=== PATIENT | male | born 1955 | race Caucasian/White ===

== ENCOUNTER 2018-11-11 11:27 | Inpatient (IN) | payer OTHER ==
[~2018-11-11] VITALS: Ht 175.3 cm; Wt 68.0 kg
[2018-11-11] MEDS ORDERED: LORazepam 2MG/ML-1ML VIAL ONE (11:33)
[2018-11-11] MEDS ORDERED: methylPREDNISolone SOD SUCC 125 MG/2 ML VL IV ONE (12:00)
[2018-11-11] MEDS ORDERED: ONDANSETRON HCL 4 MG/2 ML VIAL IV ONE (12:00)
[2018-11-11] MEDS ORDERED: LORazepam 2MG/ML-1ML VIAL IV ONE (12:30)
[2018-11-11 13:26] LABS: Hematocrit 49.4 % (41.0-53.0); Hemoglobin 16.9 g/dL (13.5-17.5); Mean Corpuscular Hemoglobin 31.5 pg (28.0-32.0); Mean Corpuscular Hgb Conc. 34.1 g/dL (32.0-36.0); Mean Corpuscular Volume 92.2 fL (80.0-100.0); Platelet Count (auto) 223 10^3/uL (140-450); Red Blood Cells 5.36 10^6/uL (4.5-5.90); Red Cell Distribution Width 13.6 % (11.8-14.3); White Blood Cell 14.9 10^3/uL (4.4-10.8)
[2018-11-11 13:37] LABS: Basophils % (manual) 0 (0.0-2.0); Blast Cells 0; Metamyelocytes % 0; Myelocytes % 0; Promyelocytes % 0; Reactive Lymphocytes 0
[2018-11-11 13:54] LABS: Band Neutrophils % (manual) 1; Eosinophils % (manual) 1 (0-7); Lymphocytes % (manual) 15 (10.0-50.0); Monocytes % (manual) 1 (0-12)
[2018-11-11] MEDS ORDERED: EPINEPHrine HCL 0.5 ML NEB NEB ONE (14:15)
[2018-11-11 15:38] LABS: Albumin 3.5 g/dL (3.4-5.0); Potassium 4.3 mmol/L (3.5-5.1)
[2018-11-11 15:41] LABS: BUN/Creatinine Ratio 13.8; Bilirubin, Total 0.7 mg/dL (0.2-1.0); Total Protein 6.7 g/dL (6.4-8.2)
[2018-11-11] MEDS ORDERED: ENOXAPARIN SOD 60 MG/0.6 ML SYRINGE SC ONE (16:00)
[2018-11-11] MEDS ORDERED: ACETAMINOPHEN 500 MG TAB PO PRN (19:00)
[2018-11-11] MEDS ORDERED: MORPHINE SULF INJ 2 MG/ML SYRINGE 1ML IV PRN ×2 (19:00)
[2018-11-11] MEDS ORDERED: ONDANSETRON HCL 4 MG/2 ML VIAL IV PRN (19:00)
[2018-11-11] MEDS ORDERED: NITROGLYCERIN 0.4 MG SL TAB SL PRN (19:00)
[2018-11-11 20:21] LABS: Urine Bacteria NONE SEEN /hpf (None Seen); Urine Blood Negative /uL (Negative); Urine Mucus FEW (None Seen); Urine Specific Gravity 1.014 (1.001-1.035); Urine WBC 1 /hpf (0 - 3)
[2018-11-11 20:50] VITALS: BP 136/91
[2018-11-11] MEDS: LORazepam 0.5 MG TAB PO PRN (21:13)
[2018-11-11] MEDS: HYDROcodone-ACET 5/325MG TAB PO PRN (21:14)
[2018-11-11 21:30] VITALS: BP 136/91
--- NOTE | 2018-11-11 21:48 | NUR ---
Telemetry admit from ER LASHON KHAN admitted to Telemetry unit after SBAR received. Patient oriented to NARINDER PINEDA, primary RN, unit, room, bed, and unit policies regarding patient care and visiting hours. Patient now on continuous telemetry monitoring, tele box # 3 and telemetry reading on arrival to unit is ST with BBB . Patient placed on bipap by RT, weighed by bed scale and encouraged to call if they need something. All questions and concerns addressed, patient verbalized understanding. Patient c/o anxiety, Lorazepam 0.5mg po given as ordered. Skin intact, old bruising on both arms noted.
[2018-11-11 22:00] VITALS: BP 136/91
[2018-11-11] MEDS: ALBUTEROL SULF 2.5 MG/0.5ML(0.5%) NEB SOLN NEB SCH (22:33)
[2018-11-11] MEDS: IPRATROPIUM BROM 0.5 MG/2.5ML INH SOL NEB SCH (22:34)
[2018-11-11] MEDS: BUDESONIDE (INHALATION) 0.5 MG/2 ML NEB NEB SCH (22:34)
[2018-11-11] MEDS ORDERED: PRE5T PO (23:58)
[2018-11-12] VITALS (49 sets, daily range): BP systolic 103–176; BP diastolic 41–97
[2018-11-12] MEDS ORDERED: ROFL1TAB2 PO (00:40)
[2018-11-12] MEDS ORDERED: IPRA0.03 INH (00:40)
[2018-11-12] MEDS ORDERED: ALB5IS NEB (00:40)
[2018-11-12] MEDS ORDERED: ALBU0.084 IN (00:40)
[2018-11-12] MEDS ORDERED: UMEC1AER IN (00:40)
[2018-11-12] MEDS ORDERED: OMEP20TA PO (00:40)
[2018-11-12] MEDS ORDERED: LORA-654 PO (00:40)
[2018-11-12] MEDS ORDERED: CITA-73 PO (00:40)
[2018-11-12] MEDS ORDERED: BUDE2SUS3 IN (00:40)
--- NOTE | 2018-11-12 00:55 | NUR ---
PT REMOVED OFF BIPAP PER PT REQUEST. PT STATED THAT HIS BREATHING FELT GOOD ENOUGH TO COME OFF. NO DISTRESS NOTED, PT WAS SLEEPING WHEN ENTERING THE ROOM. PT PLACED ON 3L NASAL CANNULA SP02 HOLDING AT 94%. PT AWARE TO CALL FOR RT IF HE WISHES TO BE PLACED BACK ON BIPAP.
--- NOTE | 2018-11-12 04:45 | NUR ---
Patient said he was hungry, given jello and taken off bipap, placed on 02 via n/c at 3L. Patient tolerated 5 minutes off bipap, patient just had a few bites of jello and wants to go back on bipap. Bipap applied.
[2018-11-12 06:07] LABS: Hematocrit 45.6 % (41.0-53.0); Hemoglobin 15.8 g/dL (13.5-17.5); Mean Corpuscular Hemoglobin 32.1 pg (28.0-32.0); Mean Corpuscular Hgb Conc. 34.6 g/dL (32.0-36.0); Mean Corpuscular Volume 92.5 fL (80.0-100.0); Platelet Count (auto) 224 10^3/uL (140-450); Red Blood Cells 4.93 10^6/uL (4.5-5.90); Red Cell Distribution Width 13.5 % (11.8-14.3); White Blood Cell 12.2 10^3/uL (4.4-10.8)
[2018-11-12] MEDS: HYDROcodone-ACET 5/325MG TAB PO PRN (06:20)
[2018-11-12 06:21] LABS: BUN/Creatinine Ratio 19.5; Calcium 8.7 mg/dL (8.5-10.1); Potassium 4.4 mmol/L (3.5-5.1)
[2018-11-12] MEDS: ALBUTEROL SULF 2.5 MG/0.5ML(0.5%) NEB SOLN NEB SCH ×5 (06:35→22:17)
[2018-11-12] MEDS: IPRATROPIUM BROM 0.5 MG/2.5ML INH SOL NEB SCH ×5 (06:35→22:17)
--- NOTE | 2018-11-12 07:20 | NUR ---
Opening Shift Note Assumed care of patient, awake and alert. No S/S of distress/SOB or pain. Instructed on POC and to call for assist PRN, will continue to monitor for changes Q1hr and PRN. Bed locked in lowest position with two side rails up and call light in reach. Patient having SOB at this time with use of accessory muscle.
--- NOTE | 2018-11-12 07:29 | NUR ---
Respiratory note: PATIENT PLACED BACK ON BIPAP AFTER TRIALING OFF FOR APPROX 30MIN. HE BECAME INCREASINGLY SOB AND REQUIRED THE VENTILATORY ASSISTANCE. HE IS ON B9 BIPAP FITTED WITH A MEDIUM FULL FACE MASK, HAS A GEL PADDING ON BRIDGE OF NOSE, AND IS SHOWING NO SIGNS OF LOSS IN SKIN INTEGRITY. PATIENT IS ALERT/ORIENTED AND IS TOLERATING BIPAP WELL. BIPAP PLUGGED INTO RED OUTLET AND ALL ALARMS ARE SET AND AUDIBLE. WILL CONTINUE TO ASSESS PATIENT WELL BIPAP FUNCTION. GALILEA FLORES MADE AWARE OF PATIENTS CURRENT STATUS AND BIPAP PLACEMENT.
[2018-11-12 07:41] LABS: Band Neutrophils % (manual) 0; Basophils % (manual) 0 (0.0-2.0); Blast Cells 0; Metamyelocytes % 0; Myelocytes % 0; Promyelocytes % 0; Reactive Lymphocytes 0
[2018-11-12 07:42] LABS: Eosinophils % (manual) 1 (0-7); Lymphocytes % (manual) 4 (10.0-50.0); Monocytes % (manual) 9 (0-12)
[2018-11-12] MEDS: LEVOFLOXACIN 750MG 150 ML IV SCH (09:51)
[2018-11-12] MEDS: DILTIAZEM HCL 120MG ER CAP PO SCH (09:52)
[2018-11-12] MEDS: LORazepam 0.5 MG TAB PO PRN (09:53)
[2018-11-12] MEDS ORDERED: PANTOPRAZOLE 40 MG TAB PO SCH (10:00)
[2018-11-12] MEDS: BUDESONIDE (INHALATION) 0.5 MG/2 ML NEB NEB SCH ×2 (10:31→18:54)
--- NOTE | 2018-11-12 11:13 | NUR ---
MEDICATION PROTONIX HELD FOR PATIENT. PATIENT HAVING SOB WITH BI PAP AND IS UNABLE TO SWALLOW AT THIS TIME DUE TO SOB.
--- NOTE | 2018-11-12 11:18 | NUR ---
PATIENT HAVING DIFFICULTY BREATHING ON BI PAP. WILL NOTIFY RT.
[2018-11-12] MEDS ORDERED: ALBUTEROL SULF 2.5 MG/0.5ML(0.5%) NEB SOLN NEB PRN (13:00)
--- NOTE | 2018-11-12 13:03 | NUR ---
DR DYLLAN TAPIA, PATIENT TO BE TRANSFERRED TO ICU FOR INTUBATION.
[2018-11-12] MEDS ORDERED: ETOMIDATE (2MG/ML) 20ML VIAL IV ONE ×2 (13:52→13:55)
--- NOTE | 2018-11-12 13:52 | NUR ---
REPORT GIVEN TO BERNARD. PATIENT GOING TO BED 106
--- NOTE | 2018-11-12 14:15 | NUR ---
PATIENT TAKEN DOWN TO ICU BED 6
[2018-11-12] MEDS ORDERED: PROPOFOL 100 ML IV ONE (14:22)
[2018-11-12] MEDS ORDERED: fentaNYL Drip 2500mCg/250mlNS 250 ML IV ONE (14:55)
--- NOTE | 2018-11-12 15:01 | NUR ---
Respiratory note: PATIENT INTUBATED AT 1425, BY SPENCER HEWITT RCP, FOR IMPENDING RESPIRATORY FAILURE WITH AN 8.0 ETT. TUBE PLACEMENT CONFIRMED BY POSITIVE COLOR CHANGE ON CO2 DETECTOR, BILATERAL BREATH SOUNDS WERE GREATLY DIMINISHED BUT HEARD, AND CONDENSATION WAS SEEN IN THE TUBE. ETT SECURED AT THE 24CM MARKING AT THE LIP VIA HA AND CXR SHOWED ETT IN SATISFACTORY POSITION SITTING APPROX 3.5CM ABOVE THE TAVON. PATIENT WAS PLACED ON V8 CARESCAPE VENT WITH THE FOLLOWING SETTINGS PER DR. DOMINIQUE'S ORDER: AC 12, 500, +5, 50%. SPO2 97%, LUNG SOUNDS GREATLY DIMINISHED T/O ALL LUNG GOMEZ, SMALL AMOUNT OF BLOOD TINGED SECRETIONS WHEN SUCTIONED; SPUTUM SAMPLE COLLECTED AND SENT TO LAB. SKIN IS WARM/DRY TO THE TOUCH AND IS INTACT NEAR HA SITE. NO CENTRAL VENOUS LINES NOTED, AND THERE IS NO EDEMA PRESENT. PATIENT IS UNRESPONSIVE TO ALL STIMULI AND IS SEDATED ON A PROPOFOL DRIP. HE IS RESTING COMFORTABLY AND TOLERATING VENT WELL. VENT PLUGGED INTO RED OUTLET AND ALL ALARMS ARE SET AND AUDIBLE. WILL CONTINUE TO ASSESS PATIENT WELL VENTILATOR FUNCTION.
[2018-11-12] MEDS: PROPOFOL 100 ML IV SCH ×2 (15:13→20:34)
[2018-11-12] MEDS: fentaNYL Drip 2500mCg/250mlNS 250 ML IV SCH (15:14)
[2018-11-12] MEDS: methylPREDNISolone SOD SUCC 40 MG/ML VL IV SCH (17:13)
[2018-11-12] MEDS: D5W/SOD CHL 0.45% 1,000 ML IV SCH (17:30)
[2018-11-12 18:19] LABS: BUN/Creatinine Ratio 22.3; Calcium 8.4 mg/dL (8.5-10.1); Potassium 4.2 mmol/L (3.5-5.1)
--- NOTE | 2018-11-12 19:00 | NUR ---
OPENING NOTE ASSUMED CARE OF PT AT THIS TIME. REPORT RECEIVED FROM DAY SHIFT RN. POC REVIEWED. HEAD TO TOE ASSESSMENT COMPLETE, SEE INTERVENTION SPREADSHEET FOR COMPLETE DETAILS. RECEIVED PT S/P INTUBATION. PT SEDATED ON FENT AT 80 MCG, AND PROP AT 50 MCG. PT RESPONDS TO STIMULATION. VSS. SKIN INTACT. IV SITES BENIGN. F/C DRAINING TO GRAVITY. SUCTION AND BVM AT BEDSIDE. BED LOCKED AND IN LOWEST POSITION, SAFETY AND ASPIRATION PRECAUTIONS IN PLACE. WILL MONITOR PT CAREFULLY.
[2018-11-12] MEDS: MIDAZOLAM DRIP 50 mg/50mL 50 ML IV SCH (20:05)
--- NOTE | 2018-11-12 20:15 | NUR ---
VERSED STARTED AT THIS TIME TO ASSIST IN PT COMFORT. PT RESISTIVE WHEN TURNING AND GIVING CARE. WILL TITRATE NEEDED.
[2018-11-12] MEDS: PANTOPRAZOLE 40 MG/10 ML VIAL INJ IV SCH (22:00)
[2018-11-13] VITALS (105 sets, daily range): BP systolic 103–139; BP diastolic 56–77
[2018-11-13] MEDS: methylPREDNISolone SOD SUCC 40 MG/ML VL IV SCH ×4 (00:13→17:40)
[2018-11-13 03:46] LABS: Basophils # (auto) 0 uL; Eosinophils # (auto) 0 uL; Hematocrit 43.4 % (41.0-53.0); Hemoglobin 14.4 g/dL (13.5-17.5); Lymphocytes # (auto) 0.6 uL; Lymphocytes % (auto) 3.5 % (10.0-50.0); Mean Corpuscular Hemoglobin 30.9 pg (28.0-32.0); Mean Corpuscular Hgb Conc. 33.3 g/dL (32.0-36.0); Monocytes # (auto) 0.3 uL; Monocytes % (auto) 1.7 % (0.0-12.0); Neutrophils # (auto) 15.1 uL; Neutrophils % (auto) 94.8 % (37.0-80.0); Platelet Count (auto) 195 10^3/uL (140-450); Red Blood Cells 4.67 10^6/uL (4.5-5.90); Red Cell Distribution Width 13.3 % (11.8-14.3); White Blood Cell 15.9 10^3/uL (4.4-10.8)
[2018-11-13 04:03] LABS: Calcium 8.5 mg/dL (8.5-10.1); Potassium 4.7 mmol/L (3.5-5.1)
[2018-11-13 04:06] LABS: BUN/Creatinine Ratio 25.3
--- NOTE | 2018-11-13 04:36 | NUR ---
BED BATH, PARTIAL LINEN CHANGE PT TOLERATED WELL. SKIN REMAINS INTACT. PT REPOSITIONED FOR SAFETY AND COMFORT. WILL CONTINUE WITH CARE.
--- NOTE | 2018-11-13 05:31 | NUR ---
[address] IN RIGHT FA, 20 GAUGE IV PLACED IN LEFT FA. PT TOLERATED WELL. LEFT AC 18 GAUGE IV REMOVED.
[2018-11-13] MEDS: PROPOFOL 100 ML IV SCH ×2 (05:58→15:18)
[2018-11-13] MEDS: IPRATROPIUM BROM 0.5 MG/2.5ML INH SOL NEB SCH ×5 (06:17→22:26)
[2018-11-13] MEDS: ALBUTEROL SULF 2.5 MG/0.5ML(0.5%) NEB SOLN NEB SCH ×5 (06:17→22:26)
[2018-11-13] MEDS: BUDESONIDE (INHALATION) 0.5 MG/2 ML NEB NEB SCH ×2 (06:18→18:58)
--- NOTE | 2018-11-13 07:28 | NUR ---
CALLED IN CRITICAL ABG TO CANDICE VERA NEW ORDERS OBTAINED SEE EMR FOR NEW ORDERS.
--- NOTE | 2018-11-13 07:30 | NUR ---
INCREASED RR SETTINGS ON VENTILATOR TO 16 PER LANDING GEAR MECHANICCANDICE DUE TO CRITICAL ABG. GALILEA SHELBY MADE AWARE.
--- NOTE | 2018-11-13 09:01 | NUR ---
I faxed clinical information to [facility] including ER notes, H&P, MD progress notes, current vitals, current xrays, current labs and current medication list.
[2018-11-13] MEDS: PANTOPRAZOLE 40 MG/10 ML VIAL INJ IV SCH ×2 (10:00→22:00)
[2018-11-13] MEDS: DILTIAZEM HCL 120MG ER CAP PO SCH (10:00)
[2018-11-13] MEDS: LEVOFLOXACIN 750MG 150 ML IV SCH (10:29)
--- NOTE | 2018-11-13 10:57 | NUR ---
SPOKE WITH SILVER PLUME DESIGN DIRECTOR ABDULLAHI WHO STATES SHE IS NOT ABLE TO GET AHOLD OF OUR CM AT THIS TIME. REPORT ON PATIENTS CURRENT CONDITION UPDATED. ABDULLAHI CAN BE REACHED AT [phone].
--- NOTE | 2018-11-13 11:05 | NUR ---
WOUND CARE NOTE: Wound care team rounding on patient due to intubation and low Junior score. Patient is a 63yo male admitted for acute on chronic respiratory failure and hypercapnia. Patient with a history of CHF, HTN, COPD with home O2 and anxiety. Patient is seen with the bedside RN, Gordo. Patient is intubated and sedated. Patient shows no signs/symptoms of pain. Last Junior score is 15. No wounds noted to any pressure points. Patient does have some areas of ecchymotic skin to bilateral arms. RECOMMENDATIONS: Turn q2hrs; Dietary consult; Nursing to cleanse buttocks with mild soap and water, pat dry, apply ZGUARD BID/PRN soiling, may apply sacral OPTIFOAM GENTLE dressing; wound care team to continue to follow while intubated and Junior <18.
--- NOTE | 2018-11-13 11:30 | NUR ---
PER DR. PAUL CHANGED VENT SETTINGS TO RR 14. GALILEA SHELBY MADE AWARE. WILL CONTINUE TO MONITOR PT.
[2018-11-13] MEDS: D5W/SOD CHL 0.45% 1,000 ML IV SCH (13:04)
--- NOTE | 2018-11-13 15:26 | NUR ---
I faxed today's MD progress notes to [facility].
--- NOTE | 2018-11-13 16:03 | NUR ---
I did not receive a call/message from T[employer] Long[employer] Foreman Yue until [phone] (no call received from her earlier today-no message left)-I spoke with her and gave her a verbal update on the status of the patient.
[2018-11-13] MEDS: fentaNYL Drip 2500mCg/250mlNS 250 ML IV SCH (17:39)
[2018-11-13] MEDS: MIDAZOLAM DRIP 50 mg/50mL 50 ML IV SCH (17:39)
--- NOTE | 2018-11-13 19:00 | NUR ---
OPENING NOTE ASSUMED CARE OF PT AT THIS TIME. REPORT RECEIVED FROM DAY SHIFT RN. POC REVIEWED. HEAD TO TOE ASSESSMENT COMPLETE, SEE INTERVENTION SPREADSHEET FOR COMPLETE DETAILS. RECEIVED PT S/P INTUBATION. PT SEDATED ON FENT AT 100 MCG, AND PROP AT 20 MCG AND VERSED AT 2MG/HR. PT RESPONDS TO STIMULATION, HAS +COUGH AND GAG. VSS. SKIN INTACT. IV SITES BENIGN. F/C DRAINING TO GRAVITY. SUCTION AND BVM AT BEDSIDE. BED LOCKED AND IN LOWEST POSITION, SAFETY AND ASPIRATION PRECAUTIONS IN PLACE. WILL MONITOR PT CAREFULLY.
[2018-11-14] VITALS (108 sets, daily range): BP systolic 110–186; BP diastolic 55–105
[2018-11-14] MEDS: methylPREDNISolone SOD SUCC 40 MG/ML VL IV SCH ×5 (00:28→23:52)
[2018-11-14] MEDS: PROPOFOL 100 ML IV SCH ×3 (00:50→17:00)
--- NOTE | 2018-11-14 04:10 | NUR ---
BATHING/LINEN CHANGE COMPLETE BED BATH AND LINEN CHANGE PROVIDED. PT TOLERATED WELL. VSS. SKIN INTEGRITY REMAINS INTACT. PT REPOSITIONED FOR SAFETY AND COMFORT. SAFETY PRECAUTIONS IN PLACE. WILL CONTINUE WITH CARE.
[2018-11-14] MEDS: IPRATROPIUM BROM 0.5 MG/2.5ML INH SOL NEB SCH ×5 (06:15→22:36)
[2018-11-14] MEDS: ALBUTEROL SULF 2.5 MG/0.5ML(0.5%) NEB SOLN NEB SCH ×5 (06:16→22:36)
[2018-11-14] MEDS: BUDESONIDE (INHALATION) 0.5 MG/2 ML NEB NEB SCH ×2 (06:17→19:03)
--- NOTE | 2018-11-14 07:30 | NUR ---
OPENING SHIFT NOTE REPORT RECEIVED FROM PASSENGER TIRE INSPECTOR RN, MORNING ASSESSMENT PERFORMED AND DOCUMENTED. 63 YEAR OLD MALE, MECHANICALLY VENTILATED AND SEDATED. POSITIVE COUGH AND GAG, MODERATE ETT AND ORAL SECRETIONS. VSS AND DOCUMENTED. PATIENT REPOSITIONED FOR COMFORT AND TO MAINTAIN SKIN INTEGRITY. MONROY PATENT AND DRAINING TO GRAVITY YELLOW URINE. FALL AND SAFETY PRECAUTIONS IN PLACE, WILL MONITOR.
--- NOTE | 2018-11-14 07:35 | NUR ---
UNABLE TO PAGE HOSPITALIST TO NOTIFY OF MORNING ABG RESULTS. DR PAUL NOT AVAILABLE UNTIL AFTER 0800.
--- NOTE | 2018-11-14 08:36 | NUR ---
I faxed clinical information to [facility] including current vitals, current medication list and MD progress notes.
--- NOTE | 2018-11-14 09:02 | NUR ---
RE-PAGED HOSPITALIST TO PROVIDE ABG RESULTS, AWAITING RESPONSE.
--- NOTE | 2018-11-14 09:13 | NUR ---
RETURN CALL FROM HOSPITALIST DR PAUL UPDATED ON PATIENT'S STATUS, ABG RESULTS AND CURRENT VENT SETTINGS. ORDERS TO DECREASE FIO2 TO 40% RECEIVED. Margo SALGADO. AWARE.
--- NOTE | 2018-11-14 09:53 | NUR ---
Family updated on pt status Family of LASHON KHAN updated on patient's status and condition, spouse Miriam unable to provide correct password, therefore, minimal information provided. Miriam stated she would be in later today. Miriam verbalized understanding.
[2018-11-14] MEDS: DILTIAZEM HCL 120MG ER CAP PO SCH (10:00)
[2018-11-14] MEDS: PANTOPRAZOLE 40 MG/10 ML VIAL INJ IV SCH ×2 (10:00→22:00)
[2018-11-14] MEDS: LEVOFLOXACIN 750MG 150 ML IV SCH (10:21)
[2018-11-14] MEDS: D5W/SOD CHL 0.45% 1,000 ML IV SCH (10:22)
--- NOTE | 2018-11-14 10:40 | NUR ---
HOSPITALIST AT BEDSIDE DR PAUL UPDATED ON PATIENT'S STATUS, ORDERS FOR CPAP RECEIVED. SEDATION DECREASED. R.T. AWARE.
--- NOTE | 2018-11-14 12:06 | NUR ---
PAGED DR PAUL CPAP ATTEMPT, PATIENT NOT FOLLOWING COMMANDS, ANXIOUS, HEART RATE IN THE 130'S, BLOOD PRESSURE 179/102, INCREASED RESPIRATIONS. PATIENT RE-SEDATED, AWAITING RESPONSE FROM DR PAUL.
--- NOTE | 2018-11-14 12:21 | NUR ---
RETURN CALL FROM DR BEVERLY PAUL UPDATED OF PATIENT AGITATION, VS. ORDERS RECEIVED AND ORDERS TO RE-SEDATED.
[2018-11-14] MEDS: MIDAZOLAM DRIP 50 mg/50mL 50 ML IV SCH (15:08)
[2018-11-14] MEDS: fentaNYL Drip 2500mCg/250mlNS 250 ML IV SCH (17:41)
--- NOTE | 2018-11-14 19:19 | NUR ---
END OF SHIFT NOTE ENDORSED CONTINUED CARE TO PHOTOCOPIER TECHNICIAN RN.
[2018-11-15] VITALS (106 sets, daily range): BP systolic 101–179; BP diastolic 53–118
[2018-11-15] MEDS: PROPOFOL 100 ML IV SCH ×3 (03:21→22:25)
--- NOTE | 2018-11-15 03:57 | NUR ---
Hygiene care/ hue care partial linen change provided. Pt tolerated well. Pt opens eyes and moves extremities at this time. Pt repositioned for safety and comfort. Will continue with care.
[2018-11-15] MEDS: D5W/SOD CHL 0.45% 1,000 ML IV SCH (05:30)
[2018-11-15] MEDS: methylPREDNISolone SOD SUCC 40 MG/ML VL IV SCH (06:06)
--- NOTE | 2018-11-15 06:07 | NUR ---
Pt opens, eyes, tries to sit up at this time. Pt follows commands to lie down and relax a this time.
[2018-11-15] MEDS: BUDESONIDE (INHALATION) 0.5 MG/2 ML NEB NEB SCH ×2 (06:31→22:56)
[2018-11-15] MEDS: ALBUTEROL SULF 2.5 MG/0.5ML(0.5%) NEB SOLN NEB SCH ×5 (06:31→22:56)
[2018-11-15] MEDS: IPRATROPIUM BROM 0.5 MG/2.5ML INH SOL NEB SCH ×5 (06:31→22:56)
--- NOTE | 2018-11-15 07:15 | NUR ---
SBAR REPORT RECEIVED FROM [facility].
--- NOTE | 2018-11-15 07:50 | NUR ---
Labs sent this morning. ABG ordered.
[2018-11-15 07:57] LABS: Basophils # (auto) 0 uL; Basophils % (auto) 0.2 % (0.0-2.0); Eosinophils # (auto) 0 uL; Hematocrit 41.6 % (41.0-53.0); Hemoglobin 13.8 g/dL (13.5-17.5); Lymphocytes # (auto) 0.5 uL; Lymphocytes % (auto) 3.2 % (10.0-50.0); Mean Corpuscular Hgb Conc. 33.3 g/dL (32.0-36.0); Mean Corpuscular Volume 93.2 fL (80.0-100.0); Monocytes # (auto) 0.4 uL; Monocytes % (auto) 2.9 % (0.0-12.0); Neutrophils # (auto) 13.2 uL; Neutrophils % (auto) 93.7 % (37.0-80.0); Platelet Count (auto) 198 10^3/uL (140-450); Red Blood Cells 4.47 10^6/uL (4.5-5.90); Red Cell Distribution Width 13.6 % (11.8-14.3); White Blood Cell 14.1 10^3/uL (4.4-10.8)
--- NOTE | 2018-11-15 08:00 | NUR ---
Lulu applied for anxiety -CPAP trial today.
[2018-11-15] MEDS: DexMEDEtomidine 400 MCG in D5W 5% 96 ML IV SCH (08:19)
[2018-11-15 08:20] LABS: Albumin 2.7 g/dL (3.4-5.0); Calcium 8.8 mg/dL (8.5-10.1); Potassium 5.1 mmol/L (3.5-5.1)
[2018-11-15 08:22] LABS: BUN/Creatinine Ratio 42.4; Bilirubin, Total 0.4 mg/dL (0.2-1.0); Total Protein 5.7 g/dL (6.4-8.2)
--- NOTE | 2018-11-15 08:37 | NUR ---
I faxed clinical information to [facility] including MD progress notes, current vitals, current xrays, current labs and current medication list.
--- NOTE | 2018-11-15 09:30 | NUR ---
Respiratory note: PT WAS PLACED ON CPAP TRIAL AND DIDNT TOLERATE MORE THAN 7 MINUTES. INCREASED HR, RR, WOB, PIP. VC WAS 594, NIF -25. PT WAS PLACED BACK OB A/C PREVIOUS MODE. RN AWARE OF CPAP FAIL. WILL BE NOTIFY.
--- NOTE | 2018-11-15 09:45 | NUR ---
Failed CPAP trial: Patient on precedex, yet, RR increased to the 30's, Hr in the 130's, SBP in the 170's, face red. Placed patient back on AC mode and sedation.
[2018-11-15] MEDS: DILTIAZEM HCL 120MG ER CAP PO SCH (09:55)
[2018-11-15] MEDS: LEVOFLOXACIN 750MG 150 ML IV SCH (09:55)
[2018-11-15] MEDS: PANTOPRAZOLE 40 MG/10 ML VIAL INJ IV SCH (10:00)
--- NOTE | 2018-11-15 10:16 | NUR ---
DR. PAUL AWARE OF FAILED CPAP. WILL TRY AGAIN TOMORROW.
--- NOTE | 2018-11-15 10:18 | NUR ---
UPDATED -KRISTIAN ON PATIENTS STATUS AND FAILED CPAP. SHE WILL SEE HIM TODAY.
[2018-11-15] MEDS ORDERED: Osmolite 1.2 Cal One Liter GT SCH (10:45)
--- NOTE | 2018-11-15 10:45 | NUR ---
Will CPAP again wait til precedex kicks in.
--- NOTE | 2018-11-15 11:40 | NUR ---
NUTRITION CONSULT/ASSESSMENT NOTES Please refer to link notes of nutrition screen form filed under the intervention section of the plan of care for further details. Est. Needs: 1700 kcal to 2050 kcal (25-30 kcal/kgBW), 68 gms to 82 gms pro (1.0-1.2 gms/kgBW). Will continue to monitor pertinent labs and reassess nutrient need prn Thank you for this consult. Addendum: 11/15/18 at [address] Amended: Links added.
[2018-11-15] MEDS: methylPREDNISolone SOD SUCC 125 MG/2 ML VL IV SCH ×2 (12:39→17:54)
--- NOTE | 2018-11-15 13:35 | NUR ---
Respiratory note: Waiting for patient to wake up for 2nd CPAP trial. Unplanned self-extubation pt was very diminished and stridor was noted. pt was placed on bipap and given mn tx.
--- NOTE | 2018-11-15 13:35 | NUR ---
1225: Patient was started on precedex - with mittons on to bilateral hands for safety. Waiting for patient to wake up for 2nd CPAP trial. Unplanned self-extubation. Patient did okay on CPAP but got stridor and Racenephrine given via bipap. Dr. Mcduffie not available - and Dr. Jones Intubated patient. Patient given versed 5mg and etomidate 20mg IV, pulled from stock and orders placed. CXR confirmed placement 8.0/24 at the lip. Placed on ventilator. on her way per earlier phone call. AC 14, TV 550, FI02 50%, PEEP 5.
[2018-11-15] MEDS ORDERED: ETOMIDATE (2MG/ML) 20ML VIAL IV ONE ×2 (14:14→14:45)
[2018-11-15] MEDS ORDERED: MIDAZOLAM HCL 5 MG/ML-1ML VIAL ONE (14:19)
[2018-11-15] MEDS ORDERED: MIDAZOLAM HCL 5 MG/ML-1ML VIAL IM ONE (14:45)
[2018-11-15] MEDS ORDERED: EPINEPHrine HCL 0.5 ML NEB NEB ONE (14:45)
[2018-11-15] MEDS: fentaNYL Drip 2500mCg/250mlNS 250 ML IV SCH ×2 (15:08→19:48)
[2018-11-15] MEDS: MIDAZOLAM DRIP 50 mg/50mL 50 ML IV SCH (15:08)
--- NOTE | 2018-11-15 16:03 | NUR ---
PICC line placement Patient's family educated on need for PICC line placement by primary RN. All risks and benefits explained and all questions and concerns addressed prior to procedure. Noted past medical history and allergies with no contraindications. INR and Plt counts within acceptable range. 5 fr PICC line inserted via right basilic vein using [employer] US and Tip Location System. Sterile technique with maximum barrier precautions utilized. Blood return obtained from each of the three lumens and each flushed easily with NS using proper technique. PICC secured with Stat-lock; biodisc and occlusive dressing applied. Stat portable chest x-ray obtained for PICC tip placement. *Baseline Arm Circumference 24 cm. *Internal Length 41 cm. *External Length 0 cm. *PICC lot #[id number].
[2018-11-15] MEDS ORDERED: LIDOCAINE 1% (LOCAL ANESTH.) PF 5ml SDV ID ONE (16:15)
--- NOTE | 2018-11-15 16:58 | NUR ---
Okay to use PICC line X-ray completed. Primary RN notified.
--- NOTE | 2018-11-15 19:00 | NUR ---
OPENING NOTE ASSUMED CARE OF PT AT THIS TIME. REPORT RECEIVED FROM DAY SHIFT RN. POC REVIEWED. HEAD TO TOE ASSESSMENT COMPLETE, SEE INTERVENTION SPREADSHEET FOR COMPLETE DETAILS. RECEIVED PT S/P INTUBATION. PT SEDATED. PT RESPONDS TO STIMULATION, HAS +COUGH AND GAG. VSS. SKIN INTACT. IV SITES BENIGN. F/C DRAINING TO GRAVITY. SUCTION AND BVM AT BEDSIDE. BED LOCKED AND IN LOWEST POSITION, SAFETY AND ASPIRATION PRECAUTIONS IN PLACE. WILL MONITOR PT CAREFULLY
--- NOTE | 2018-11-15 19:34 | NUR ---
SBAR REPORT GIVEN TO HELLEN.
--- NOTE | 2018-11-15 19:48 | NUR ---
FENTANYL RESTARTED AT THIS TIME, AT 25MCG. WILL TITRATE NECESSARY. PRECEDEX D/C AT THIS TIME.
--- NOTE | 2018-11-15 20:08 | NUR ---
NUTRITION TF STARTED AT 30 MLS/HR AT THIS TIME. POSITIVE PLACEMENT ATTAINED. WILL ASSESS FOR PT TOLERANCE.
[2018-11-15] MEDS: SODIUM CHLOR 0.9% PF (SALINE LOCK) 10ML VIAL/SYR IV SCH (22:24)
[2018-11-15] MEDS: ESOMEPRAZOLE 40 MG/5ml VIAL INJ IV SCH (22:24)
[2018-11-16] VITALS (106 sets, daily range): BP systolic 102–159; BP diastolic 49–96
--- NOTE | 2018-11-16 00:35 | NUR ---
RESIDUALS 15 MLS ASPIRATED. TF INCREASED TO 40 MLS/HR AT THIS TIME.
[2018-11-16] MEDS: MIDAZOLAM DRIP 50 mg/50mL 50 ML IV SCH ×2 (00:49→20:00)
[2018-11-16 04:28] LABS: Basophils # (auto) 0 uL; Basophils % (auto) 0.1 % (0.0-2.0); Eosinophils # (auto) 0 uL; Hematocrit 39.2 % (41.0-53.0); Hemoglobin 13.2 g/dL (13.5-17.5); Lymphocytes # (auto) 0.4 uL; Lymphocytes % (auto) 3.3 % (10.0-50.0); Mean Corpuscular Hemoglobin 31.2 pg (28.0-32.0); Mean Corpuscular Hgb Conc. 33.6 g/dL (32.0-36.0); Mean Corpuscular Volume 92.9 fL (80.0-100.0); Monocytes # (auto) 0.3 uL; Monocytes % (auto) 2.6 % (0.0-12.0); Neutrophils # (auto) 11.9 uL; Nucleated Red Blood Cells % 0.2 %; Platelet Count (auto) 181 10^3/uL (140-450); Red Blood Cells 4.22 10^6/uL (4.5-5.90); Red Cell Distribution Width 13.4 % (11.8-14.3); White Blood Cell 12.6 10^3/uL (4.4-10.8)
--- NOTE | 2018-11-16 04:30 | NUR ---
RESIDUALS 20 MLS ASPIRATED AT THIS TIME. CONTINUE TFA T 40 MLS/HR.
--- NOTE | 2018-11-16 04:31 | NUR ---
BATHING/HYGIENE LESLI CARE PROVIDED. PARTIAL LINEN CHANGE. PT TOLERATED WELL. SKIN REMAINS INTACT. PT REPOSITIONED FOR SAFETY AND COMFORT. WILL CONTINUE WITH CARE.
[2018-11-16 04:59] LABS: Albumin 2.6 g/dL (3.4-5.0); BUN/Creatinine Ratio 44.9; Calcium 8.5 mg/dL (8.5-10.1); Potassium 4.6 mmol/L (3.5-5.1)
[2018-11-16 05:01] LABS: Bilirubin, Total 0.6 mg/dL (0.2-1.0); Total Protein 5.4 g/dL (6.4-8.2)
[2018-11-16] MEDS: D5W/SOD CHL 0.45% 1,000 ML IV SCH ×2 (05:14→21:25)
[2018-11-16] MEDS: methylPREDNISolone SOD SUCC 125 MG/2 ML VL IV SCH ×4 (05:39→17:56)
[2018-11-16] MEDS: PROPOFOL 100 ML IV SCH ×2 (05:39→16:19)
[2018-11-16] MEDS: ALBUTEROL SULF 2.5 MG/0.5ML(0.5%) NEB SOLN NEB SCH ×5 (06:27→22:27)
[2018-11-16] MEDS: IPRATROPIUM BROM 0.5 MG/2.5ML INH SOL NEB SCH ×5 (06:27→22:27)
[2018-11-16] MEDS: Jevity 1.2 Cal/Fiber 1 Liter GT SCH (07:25)
--- NOTE | 2018-11-16 07:30 | NUR ---
REPORT REPORT RECEIVED FROM NIGHT RNASHA. PT INTUBATED , SEDATED AND RESTING COMFORTABLY IN BED WITH NO DISTRESS NOTED. VSS. CONTINUE TO MONITOR.
--- NOTE | 2018-11-16 07:50 | NUR ---
ASSESSMENT PT IN BED WITH EYES CLOSED, SEDATED AND ON THE VENTILATOR. SOME SPONTANEOUS MOVEMENT NOTED AND WITHDRAWS TO PAINFUL STIMULI. VENTILATOR SETTIN FR ETT/24 AT THE LIP, TV 550, AC 14, 40% FIO2 AND PEEP OF 5. LUNGS CLEAR THROUGHOUT. SUCTIONED FOR SCANT AMOUNT OF THIN CLEAR FLUID VIA ETT AND ORALLY. O2 SAT OF 94%. TELE SR 78 WITH BBB, ELEVATED ST IN LEAD II AND DEPRESSED ST WITH INVERTED T WAVE IN LEAD V. PALPABLE PULSES TO ALL EXTREMITIES. SCDS TO BLE. +1 PITTING EDEMA NOTED TO BILATERAL ANKLES. ABD SOFT WITH HYPOACTIVE BOWEL SOUNDS. OGT IN PLACE WITH 30 ML RESIDUAL. FEEDING OF JEVITY INFUSING AT 40 ML/HR. LAST BM WAS 11/11. MONROY CATHETER DRAINING CLEAR YELLOW URINE. SCAB NOTED TO LEFT OUTER KNEE. PREVENTATIVE OPTIFOAM IN PLACE TO SACRUM , SKIN CLEAR. IVF TO RUE PICC LINE, SITE BENIGN. CONTINUE TO MONITOR.
[2018-11-16] MEDS: DILTIAZEM HCL 120MG ER CAP PO SCH (10:00)
[2018-11-16] MEDS: BUDESONIDE (INHALATION) 0.5 MG/2 ML NEB NEB SCH ×2 (10:05→22:29)
--- NOTE | 2018-11-16 10:15 | NUR ---
Repositioned pt to his left side. Held scheduled cardizem cd as it is a sustained release and pt unable to swallow . Will discuss with .
[2018-11-16] MEDS: SODIUM CHLOR 0.9% PF (SALINE LOCK) 10ML VIAL/SYR IV SCH ×2 (10:19→21:25)
[2018-11-16] MEDS: ESOMEPRAZOLE 40 MG/5ml VIAL INJ IV SCH ×2 (10:19→21:25)
[2018-11-16] MEDS: LEVOFLOXACIN 750MG 150 ML IV SCH (10:19)
--- NOTE | 2018-11-16 11:07 | NUR ---
FAMILY PT'S HERE AT THE BEDSIDE AND UPDATED ON THE PT'S CONDITION AND POC. ASKED ABOUT CPAP TRIAL. I LET HER KNOW THAT NONE IS CURRENTLY ORDERED. IF SHE IS NOT HERE WHEN MD MAKES ROUNDS, I WILL REQUEST THAT HE CALL THE PT'S TO UPDATE HER ON THE PT'S CONDITION AND POC.
[2018-11-16] MEDS: DexMEDEtomidine 400 MCG in D5W 5% 96 ML IV SCH (12:00)
[2018-11-16] MEDS ORDERED: DEXTROSE (50%) 50ML SYRG IV PRN (13:30)
[2018-11-16] MEDS: InsuLIN REG 1unit/0.01ml Soln (100units/ml) SC SCH ×3 (13:45→20:21)
--- NOTE | 2018-11-16 13:45 | NUR ---
PT TO BE STARTED ON Q 4HR ACCUCHECKS WITH MODERATE SLIDING SCALE COVERAGE. BLOOD SUGAR AT NOON WAS 169 AND SO COVERED WITH 2 UNITS REGULAR INSULIN SQ.
[2018-11-16] MEDS: ACCU-CHEK COMFORT CURVE STRIP VI SCH ×2 (16:13→20:21)
--- NOTE | 2018-11-16 17:19 | NUR ---
MD/PHONE CALLED AND SPOKE WITH DR BERRY REGARDING PT ON CARDIZEM CD AND PT IS ON THE VENTILATOR AND WITH OGT. DISCONTINUES THE MED AND NO NEW ORDER RECEIVED AFTER LETTING HIM KNOW THE PT'S CURRENT VITALS.
--- NOTE | 2018-11-16 18:00 | NUR ---
given scheduled solumedrol and repositioned for comfort to his back. suctioned via ett for small amount of thin cordero fluid and oral care provided.
--- NOTE | 2018-11-16 19:30 | NUR ---
SHIFT OPENING NOTE RECEIVED PATIENT SEDATED AND INTUBATED. ON FENTANYL AT 100, PROPOFOL AT 20, VERSED AT 2. VENT SETTINGS AC 14, TV 550, FI02 40%, PEEP 5. FEEDINGS WITH OG TUBE JEVITY AT 60ML/H, PLACEMENT VERIFIED, NO RESIDUALS NOTED. MONROY CATH DRAINING STACEY URINE. MEI PICC INFUSING DRIPS. PHYSICAL ASSESSMENT COMPLETED, SEE INTERVENTIONS. WILL CLOSELY MONITOR.
--- NOTE | 2018-11-16 19:30 | NUR ---
REPORT REPORT GIVEN TO SHANICE LINDER RN.
[2018-11-16] MEDS: fentaNYL Drip 2500mCg/250mlNS 250 ML IV SCH (20:00)
--- NOTE | 2018-11-16 23:45 | NUR ---
ROUNDS PATIENT RESTING CONFORMABLY ON SEDATION. REPOSITIONED. WILL CONTINUE TO CLOSELY MONITOR.
[2018-11-17] VITALS (108 sets, daily range): BP systolic 131–191; BP diastolic 61–112
[2018-11-17] MEDS ORDERED: methylPREDNISolone SOD SUCC 40 MG/ML VL ONE (00:10)
[2018-11-17] MEDS: InsuLIN REG 1unit/0.01ml Soln (100units/ml) SC SCH ×6 (00:14→20:34)
[2018-11-17] MEDS: ACCU-CHEK COMFORT CURVE STRIP VI SCH ×6 (00:14→20:25)
[2018-11-17] MEDS: methylPREDNISolone SOD SUCC 125 MG/2 ML VL IV SCH ×4 (00:14→18:08)
--- NOTE | 2018-11-17 01:00 | NUR ---
RESIDUALS ASPIRATED 20 ML. FEEDINGS CONTINUED AT 60 ML/H.
[2018-11-17] MEDS: PROPOFOL 100 ML IV SCH ×2 (01:19→23:53)
[2018-11-17 03:54] LABS: Basophils # (auto) 0 uL; Basophils % (auto) 0.2 % (0.0-2.0); Eosinophils # (auto) 0 uL; Hematocrit 41.3 % (41.0-53.0); Hemoglobin 13.6 g/dL (13.5-17.5); Lymphocytes # (auto) 0.2 uL; Lymphocytes % (auto) 1.8 % (10.0-50.0); Mean Corpuscular Hemoglobin 30.6 pg (28.0-32.0); Mean Corpuscular Hgb Conc. 32.9 g/dL (32.0-36.0); Mean Corpuscular Volume 93.1 fL (80.0-100.0); Monocytes # (auto) 0.4 uL; Monocytes % (auto) 3.1 % (0.0-12.0); Neutrophils # (auto) 13.2 uL; Neutrophils % (auto) 94.9 % (37.0-80.0); Platelet Count (auto) 179 10^3/uL (140-450); Red Blood Cells 4.43 10^6/uL (4.5-5.90); Red Cell Distribution Width 13.6 % (11.8-14.3); White Blood Cell 13.9 10^3/uL (4.4-10.8)
[2018-11-17 04:10] LABS: Albumin 2.8 g/dL (3.4-5.0); Calcium 8.8 mg/dL (8.5-10.1)
[2018-11-17 04:15] LABS: BUN/Creatinine Ratio 46.4; Bilirubin, Total 0.5 mg/dL (0.2-1.0); Total Protein 5.6 g/dL (6.4-8.2)
--- NOTE | 2018-11-17 04:15 | NUR ---
MORNING HYGIENE CARE ORAL CARE PERFORMED. FULL BED BATH WITH CHG WIPES DONE. GOWN CHANGED. PARTIAL LINEN CHANGE. PATIENT REPOSITIONED. TOLERATED IT WELL.
--- NOTE | 2018-11-17 04:30 | NUR ---
RESIDUALS NONE AT THIS TIME. FEEDINGS REMAIN AT 60 ML/H
[2018-11-17] MEDS: IPRATROPIUM BROM 0.5 MG/2.5ML INH SOL NEB SCH ×5 (07:10→21:49)
[2018-11-17] MEDS: ALBUTEROL SULF 2.5 MG/0.5ML(0.5%) NEB SOLN NEB SCH ×5 (07:10→21:49)
--- NOTE | 2018-11-17 07:13 | NUR ---
END OF SHIFT REPORT GIVEN AND CARE ENDORSED TO NITISH CALERO.
--- NOTE | 2018-11-17 07:15 | NUR ---
REPORT REPORT RECEIVED FROM KAILASH RNSHANICE. PT RESTING IN BED WITH EYES CLOSED AND IN NO APPARENT DISTRESS. VSS. ON THE VENTILATOR AND SEDATED. CONTINUE TO MONITOR.
--- NOTE | 2018-11-17 07:45 | NUR ---
ASSESSMENT PT LAYING IN BED WITH EYES CLOSED. WITHDRAWS TO PAINFUL STIMULI BUT DOES NOT FOLLOW COMMANDS. NO SPONTANEOUS MOVEMENT NOTED. ON THE VENTILATOR WITH 8 FR ETT/24 AT THE LIP, TV 550, AC 14, 40% AND PEEP OF 5. LUNGS CLEAR AND DIMINISHED THROUGHOUT. SAT OF 93%. TELE SR WITH A NOTCHED P WAVE AND ST ELEVATION IN LEAD II AND INVERTED T WAVE AND DEPRESSED ST IN LEAD V. PALPABLE PULSES TO ALL EXTREMITIES. +1 PITTING EDEMA NOTED TO BILATERAL ANKLES. Addendum: 11/17/18 at 1138 by Giovana Larson RN SCDS TO BLE. ABD DISTENDED WITH NO BM SINCE 11/11. PER REPORT, PT WAS PASSING GAS ON THE HOT SEALING MACHINE OPERATOR. WILL DISCUSS WITH . ACTIVE BOWEL SOUNDS NOTED. MONROY CATHETER DRAINING CLEAR YELLOW URINE. TURNED FOR COMFORT TO HIS LEFT SIDE. SACRAL OPTIFOAM IN PLACE WITH SKIN UNDER CLEAR. BLANCHABLE LIGHT PINK NOTED IN CREVICE BETWEEN BUTTOCKS. HOB AT 30 DEGREES AND RAILS UP X4 FOR PT SAFETY. CONTINUE TO MONITOR.
--- NOTE | 2018-11-17 08:00 | NUR ---
PT TEACHING PT CURRENTLY UNABLE TO BENEFIT FROM PT TEACHING AT THIS TIME HE IS SEDATED WHILE ON THE VENTILATOR. Addendum: 11/17/18 at 1715 by Giovana Larson RN Amended: Links added.
[2018-11-17] MEDS ORDERED: SODIUM CHLOR 0.9% PF (SALINE LOCK) 10ML VIAL/SYR IV ONE (08:38)
--- NOTE | 2018-11-17 09:15 | NUR ---
MD/ABG RESULTS SPOKE WITH DR PAUL AND INFORMED OF THE ABG RESULTS DONE ON 35%. HE WANTS TO PROCEED WITH CPAP TRIAL. WILL START WEANING SEDATION AND NOTIFY RT RICK.
[2018-11-17] MEDS: SODIUM CHLOR 0.9% PF (SALINE LOCK) 10ML VIAL/SYR IV SCH ×2 (10:30→22:29)
[2018-11-17] MEDS: LEVOFLOXACIN 750MG 150 ML IV SCH (10:30)
[2018-11-17] MEDS: ESOMEPRAZOLE 40 MG/5ml VIAL INJ IV SCH ×2 (10:30→22:29)
--- NOTE | 2018-11-17 10:45 | NUR ---
ALL SEDATION NOW OFF. CONTINUE TO MONITOR.
--- NOTE | 2018-11-17 11:10 | NUR ---
MENTATION PT NOW WITH EYES OPEN, EXPLAINED TO HIM THAT WE HAVE TURNED OFF THE SEDATION TO ALLOW HIM TO WAKE AND DO A TEST TO SEE IF WE CAN TAKE HIM OFF THE VENTILATOR. HR UP TO THE 130'S. EXPLAINED TO THE PT THE NEED FOR HIM TO REMAIN CALM. WILL START ORDERED PRECEDEX DRIP. CALLED PHARMACY FOR THE MED.
--- NOTE | 2018-11-17 11:11 | NUR ---
Nutrition Follow-up Notes Wt.: 66.5 kg as of yesterday Pt's intubated, no immediate family member at bedside during rounds earlier. Pt's currently sedated with Propofol @ 8.196 ml/hr providing 216 kcal from Fat, currently NPO with EN support temporarily held for possible CPAP trial today, per nursing. Pt's previously on Jevity 1.2 Miguel @ 60 ml/hr providing 1728 kcal, 80 gms pro and 1162 ml free water, tolerates feeding well. Est. Needs based on CBWt (67 kg): 9150-5153 kcal (25-20 kcal/kgBW), 67-80 gms pro (1.0-1.2 gms/kgBW). Will continue to monitor pertinent labs and reassess nutrient need prn Labs: Gluc 168 H, CO2 36 H, BUN 39 H, AST 75 H, ALT 165, Tpro 5.6 L, Alb 2.8 L Skin: Junior scale 15, mod risk, pt's skin intact per dragline operator. GI: Pt's no bowel activity since 11/11/18 per dragline operator. PES: Increased nutrient needs r/t current/chronic medical condition aeb intubated, sedated, mod hypoalbuminemia, NPO with EN support Altered nutrition related lab values r/t current/chronic medical condition aeb elev BUN, hyperglycemia, hypocalcemia, mod hypoalb Obesity t/t hx food intake more than body requirement aeb 204% IBW. BMI 41/7 kg/m2 and increased body adiposity Will continue to monitor NPO status, skin status, pertinent labs and weight trend. F/u in 2 to 3 days. Rec.: 1.) Advance gradually to oral diet when medically appropriate. 2.) If still NPO, consider to resume EN support of Jevity 1.2 Miguel @ 60 ml/hr goal rate as tolerated if medically appropriate. 3 ) If Albumin level continues trending down, consider Prostat 1 pkt BID. 4.) Refer pt to RD for further nutrition education and weight monitoring upon discharge. 5.) Continue current plan of care.
--- NOTE | 2018-11-17 11:27 | NUR ---
WITH HR 135 AND BP OF 156/71, STARTED PT ON PRECEDEX AT 0.2 MCG/KG/HR. STAYING AT BEDSIDE TO MONITOR PT.
[2018-11-17] MEDS: DexMEDEtomidine 400 MCG in D5W 5% 96 ML IV SCH (11:31)
[2018-11-17] MEDS: BUDESONIDE (INHALATION) 0.5 MG/2 ML NEB NEB SCH ×2 (11:40→18:11)
--- NOTE | 2018-11-17 12:50 | NUR ---
Paged Dr Mcduffie for the second time. Informed him that pt not yet on CPAP and vs: 134-30-95% and 191/112. He would like to have the respiratory therapist evaluate the pt. I verified with that if Jose Francisco feels pt cannot tolerate it is okay to place the pt back on sedation and resume feedings.
--- NOTE | 2018-11-17 13:00 | NUR ---
RICK RT, IN TO EVALUATE PT. VS REMAIN UNSTABLE AND SO PT RE-SEDATED AND FEEDINGS RESUMED. CONTINUE TO MONITOR.
--- NOTE | 2018-11-17 13:35 | NUR ---
FAMILY PT'S HERE AND UPDATED ON RECENT ATTEMPT TO WAKE PT UP FOR CPAP TRIAL , PT WITH VERY UNSTABLE VS, AND SEDATION TURNED BACK OFF.
--- NOTE | 2018-11-17 15:29 | NUR ---
MD VISIT PT SEEN AND EXAMINED BY DR PAUL. HE SPOKE WITH THE PT'S WHO WAS AT THE BEDSIDE.
--- NOTE | 2018-11-17 16:00 | NUR ---
ACCUCHECK OF 192 AND GIVEN 3 UNITS OF REGULAR INSULIN SQ.
[2018-11-17] MEDS: D5W/SOD CHL 0.45% 1,000 ML IV SCH ×2 (17:30→20:24)
--- NOTE | 2018-11-17 19:40 | NUR ---
OPENING NOTE RECEIVED REPORT AND ASSUMED CARE OF PT FROM NITISH CALERO
--- NOTE | 2018-11-17 20:08 | NUR ---
REPORT GIVEN TO KAILASH RNZANDRA.
[2018-11-17] MEDS: fentaNYL Drip 2500mCg/250mlNS 250 ML IV SCH (20:23)
[2018-11-17] MEDS: Jevity 1.2 Cal/Fiber 1 Liter GT SCH (20:57)
[2018-11-18] VITALS (104 sets, daily range): BP systolic 116–165; BP diastolic 57–94
--- NOTE | 2018-11-18 | NUR ---
OGT REPLACED DUE TO NOT ABLE TO FLUSH OR ASPIRATE. Size 16. PLACEMENT VERIFIED BY AUSCULTATION AND SUCTION TRIAL. PT TOLERATED WELL
[2018-11-18] MEDS: methylPREDNISolone SOD SUCC 125 MG/2 ML VL IV SCH ×4 (00:22→17:40)
[2018-11-18] MEDS: InsuLIN REG 1unit/0.01ml Soln (100units/ml) SC SCH ×6 (00:23→20:08)
[2018-11-18] MEDS: ACCU-CHEK COMFORT CURVE STRIP VI SCH ×6 (00:23→20:08)
[2018-11-18 04:33] LABS: Albumin 2.6 g/dL (3.4-5.0); Calcium 8.5 mg/dL (8.5-10.1); Potassium 4.7 mmol/L (3.5-5.1)
[2018-11-18 04:37] LABS: BUN/Creatinine Ratio 50.6; Bilirubin, Total 0.5 mg/dL (0.2-1.0); Total Protein 5.6 g/dL (6.4-8.2)
--- NOTE | 2018-11-18 05:00 | NUR ---
BED BATH AND LINEN CHANGE BED BATH WITH CHG WIPES AND COMPLETE LINEN CHANGE. PT TOLERATED WELL.
[2018-11-18 05:14] LABS: Hemoglobin 13.6 g/dL (13.5-17.5); Mean Corpuscular Hemoglobin 30.6 pg (28.0-32.0); Mean Corpuscular Hgb Conc. 32.4 g/dL (32.0-36.0); Mean Corpuscular Volume 94.7 fL (80.0-100.0); Platelet Count (auto) 164 10^3/uL (140-450); Red Blood Cells 4.43 10^6/uL (4.5-5.90); Red Cell Distribution Width 13.6 % (11.8-14.3); White Blood Cell 16.2 10^3/uL (4.4-10.8)
[2018-11-18 05:22] LABS: Band Neutrophils % (manual) 0; Basophils % (manual) 0 (0.0-2.0); Blast Cells 0; Eosinophils % (manual) 0 (0-7); Metamyelocytes % 0; Myelocytes % 0; Promyelocytes % 0; Reactive Lymphocytes 0
[2018-11-18] MEDS: MIDAZOLAM DRIP 50 mg/50mL 50 ML IV SCH (05:32)
[2018-11-18] MEDS: IPRATROPIUM BROM 0.5 MG/2.5ML INH SOL NEB SCH ×5 (06:14→21:59)
[2018-11-18] MEDS: ALBUTEROL SULF 2.5 MG/0.5ML(0.5%) NEB SOLN NEB SCH ×5 (06:14→21:59)
[2018-11-18 06:30] LABS: Lymphocytes % (manual) 4 (10.0-50.0); Monocytes % (manual) 3 (0-12)
--- NOTE | 2018-11-18 07:15 | NUR ---
CLOSING NOTE SHIFT REPORT GIVEN AND CARE ENDORSED TO MARVIN CALERO
--- NOTE | 2018-11-18 07:30 | NUR ---
OPEN. REPORT RECEIVED FROM LAUNDRY OPERATOR FINISHING RN MEGAN, ASSUMED CARE OF PT. VITAL SIGNS WITHIN NORMAL LIMITS AT THIS TIME, SEE INTERVENTIONS FOR INITIAL ASSESSMENT. TUBE FEEDINGS HELD AT THIS TIME, AWAITING FOLLOW UP WITH MD. WILL CONTINUE TO MONITOR PT.
[2018-11-18] MEDS: PROPOFOL 100 ML IV SCH ×2 (09:30→22:01)
[2018-11-18] MEDS: BUDESONIDE (INHALATION) 0.5 MG/2 ML NEB NEB SCH ×2 (10:15→18:48)
--- NOTE | 2018-11-18 11:00 | NUR ---
DR WHITE AT BEDSIDE. NO NEW ORDERS IN PLACE AT THIS TIME.
[2018-11-18] MEDS: LEVOFLOXACIN 750MG 150 ML IV SCH (11:26)
[2018-11-18] MEDS: ESOMEPRAZOLE 40 MG/5ml VIAL INJ IV SCH ×2 (11:27→21:12)
[2018-11-18] MEDS: SODIUM CHLOR 0.9% PF (SALINE LOCK) 10ML VIAL/SYR IV SCH ×2 (11:28→21:12)
[2018-11-18] MEDS: DexMEDEtomidine 400 MCG in D5W 5% 96 ML IV SCH (11:36)
--- NOTE | 2018-11-18 14:50 | NUR ---
PT'S AT BEDSIDE. ALL QUESTIONS/COMMENTS ANSWERED/ADDRESSED AT THIS TIME.
--- NOTE | 2018-11-18 15:14 | NUR ---
DR MIJARES AT BEDSIDE.
--- NOTE | 2018-11-18 15:27 | NUR ---
TUBE FEEDINGS RESUMED PER MD ORDERS. POSSIBLE CPAP TRIAL TOMORROW (11/19) PER DR MIJARES.
[2018-11-18] MEDS: D5W/SOD CHL 0.45% 1,000 ML IV SCH (17:08)
[2018-11-18] MEDS: fentaNYL Drip 2500mCg/250mlNS 250 ML IV SCH (17:41)
--- NOTE | 2018-11-18 20:00 | NUR ---
20 ML OF OGT RESIDUAL NOTED, FEEDING KEPT @ 20ML/HR.
[2018-11-19] VITALS (105 sets, daily range): BP systolic 98–194; BP diastolic 49–118
--- NOTE | 2018-11-19 | NUR ---
10 ML RESIDUAL FROM OGT NOTED, CONTINUED FEEDING.
[2018-11-19] MEDS: InsuLIN REG 1unit/0.01ml Soln (100units/ml) SC SCH ×7 (00:03→23:48)
[2018-11-19] MEDS: methylPREDNISolone SOD SUCC 125 MG/2 ML VL IV SCH ×4 (00:03→17:52)
[2018-11-19] MEDS: ACCU-CHEK COMFORT CURVE STRIP VI SCH ×7 (00:03→23:47)
--- NOTE | 2018-11-19 02:30 | NUR ---
TUBE FEEDING TURNED OFF FOR POSSIBLE CPAP.
--- NOTE | 2018-11-19 02:35 | NUR ---
OPENING NOTES ASSUMED CARE, ON VENT, AC MODE, SEDATION INFUSING IN THE RIGHT UPPER ARM PICC LINE, SEE SPREADSHEET FOR TITRATION PATENT AND INTACT OGT INFUSING JEVITY FEEDING @ 20ML/HR, MONROY CATHETER DRAINING BY GRAVITY TO A CLEAR, YELLOW URINE. BED IN LOWEST POSITION WITH SIDE RAILS UP, BED ALARM ON. WILL CONTINUE CARE. Addendum: 11/19/18 at 2336 by Aure Valdez RN ACTUAL DATE AND TIME WAS 11/18/2018, 1914
[2018-11-19] MEDS: DexMEDEtomidine 400 MCG in D5W 5% 96 ML IV SCH (03:30)
--- NOTE | 2018-11-19 04:00 | NUR ---
CHG BATH DONE, LINENS AND GOWN CHANGED. REPOSITIONED FOR COMFORT.
[2018-11-19 04:59] LABS: Hematocrit 44.7 % (41.0-53.0); Hemoglobin 14.5 g/dL (13.5-17.5); Mean Corpuscular Hemoglobin 30.7 pg (28.0-32.0); Mean Corpuscular Hgb Conc. 32.4 g/dL (32.0-36.0); Mean Corpuscular Volume 94.6 fL (80.0-100.0); Platelet Count (auto) 162 10^3/uL (140-450); Red Blood Cells 4.73 10^6/uL (4.5-5.90); Red Cell Distribution Width 13.2 % (11.8-14.3); White Blood Cell 20.7 10^3/uL (4.4-10.8)
[2018-11-19 05:05] LABS: Basophils % (manual) 0 (0.0-2.0); Blast Cells 0; Eosinophils % (manual) 0 (0-7); Metamyelocytes % 0; Monocytes % (manual) 0 (0-12); Myelocytes % 0; Promyelocytes % 0
[2018-11-19 05:13] LABS: Albumin 2.8 g/dL (3.4-5.0); Potassium 4.8 mmol/L (3.5-5.1)
[2018-11-19 05:17] LABS: BUN/Creatinine Ratio 61.6; Bilirubin, Total 0.6 mg/dL (0.2-1.0); Total Protein 5.9 g/dL (6.4-8.2)
--- NOTE | 2018-11-19 05:30 | NUR ---
SOB NOTED, SBP 160'S-170'S, HR 110'S- 120'S, RR 24, SPO2 93%, PT NODDED HIS HEAD WHEN ASKED WHEN HE'S HAVING HARD TIME BREATHING, SEDATION WITH PROPOFOL AND FENTANYL INCREASED, SEE SPREADSHEET, PRECEDEX STILL @ 0.2 MCG/KG/HR. PLACED ON HIGH BACK REST AND REPOSITIONED FOR COMFORT. WILL CONTINUE TO MONITOR.
[2018-11-19] MEDS: ALBUTEROL SULF 2.5 MG/0.5ML(0.5%) NEB SOLN NEB SCH ×5 (06:01→22:19)
[2018-11-19] MEDS: IPRATROPIUM BROM 0.5 MG/2.5ML INH SOL NEB SCH ×5 (06:01→22:19)
--- NOTE | 2018-11-19 06:08 | NUR ---
Respiratory note: RECEIVED PATIENT ON V8 CARESCAPE VENT ORALLY INTUBATED WITH AN 8.0 ETT SECURED VIA HA AT THE 24CM MARKING AT THE LIP, AND MECHANICALLY VENTILATED WITH THE CHARTED SETTINGS. SPO2 95%, LUNG SOUNDS DIM T/O, NO SECRETIONS WHEN SUCTIONED. SKIN IS WARM/DRY TO THE TOUCH AND IS INTACT NEAR HA SITE, THERE IS NO BREAKDOWN NOTED AROUND LIPS OR CHEEKS FROM HA. THERE IS AN OGT IN PLACE AND SECURED TO THE ETT, PITTING EDEMA NOTED IN BILATERAL UPPER EXTREMITIES, NO EDEMA NOTED IN LOWER EXTREMITIES. NO NEW AM CXR TO ASSESS. PATIENT IS UNRESPONSIVE TO VERBAL STIMULI, BUT DOES RESPOND TO TACTILE STIMULI AND IS SEDATED ON PROPOFOL, FENTANYL, AND PRECEDEX DRIPS. HE IS RESTING COMFORTABLY AND TOLERATING VENT WELL, NO CHANGES MADE. VENT PLUGGED INTO RED OUTLET AND ALL ALARMS ARE SET AND AUDIBLE. WILL CONTINUE TO ASSESS PATIENT WELL VENTILATOR FUNCTION. [employer] RUN INLINE.
--- NOTE | 2018-11-19 06:10 | NUR ---
DESATURATION 88-89 %, BABAR RT AT BEDSIDE, FiO2 INCREASED TO 50%.
[2018-11-19 06:17] LABS: Band Neutrophils % (manual) 2; Lymphocytes % (manual) 5 (10.0-50.0); Reactive Lymphocytes 2
--- NOTE | 2018-11-19 06:27 | NUR ---
REASSESSMENT APPEARS CALM, RESTING WITH HIS EYES CLOSED, RR 14, SPO2 93%, HR 92, BP 118/68, STILL ON VENT, AC MODE, FIO2 @ 50%.
--- NOTE | 2018-11-19 06:30 | NUR ---
Respiratory note: FIO2 INCREASED TO 50% AT THIS TIME FOR DESAT TO MID 80'S. RN NAOMI NOTIFIED OF CHANGE.
--- NOTE | 2018-11-19 07:00 | NUR ---
CLOSING NOTES RESTING ON VENT WITH HIS EYES CLOSED, VSS STABLE. REPORT GIVEN TO DAY SHIFT GALILEA TAYLOR.
--- NOTE | 2018-11-19 08:00 | NUR ---
Opening Shift Note Assumed care of patient in room 106. Patient is sedated with respiratory support. Repositioned patient to assess skin on back side. On initial walk in of patient, vital signs showed increasing heart rate and blood pressure, along with opening eyes, showed signs of restlessness so increased sedation for comfort. In morning, from report RT increased patients Fio2 from 30 to 50 for support. OG tube with feeding was held due to high residual, will reassess later today and begin if needed. Currently, now there are no signs of distress/SOB. Medication currently running is charted in the patients IV spreadsheet. Will continue to monitor for changes Q1hr and PRN. Signed: 11/19/18 at 914 by SN ELVI <Co-Signature Required> Co-Signed: 11/19/18 at 914 by Augustina Torre RN
--- NOTE | 2018-11-19 08:42 | NUR ---
I faxed clinical information to [facility] including MD progress notes, current vitals, current medication list, current labs and current xrays.
--- NOTE | 2018-11-19 09:15 | NUR ---
Sedation Plan for Cpap today. Began to titrate down on diprivan, and currently running precedex so will titrate accordingly. Communicated with AUSTIN VOSS on plan. Signed: 11/19/18 at 921 by SN ELVI <Co-Signature Required> Co-Signed: 11/19/18 at 921 by Augustina Torre RN
[2018-11-19] MEDS: D5W/SOD CHL 0.45% 1,000 ML IV SCH (09:30)
[2018-11-19] MEDS: BUDESONIDE (INHALATION) 0.5 MG/2 ML NEB NEB SCH ×2 (09:54→22:19)
[2018-11-19] MEDS: LEVOFLOXACIN 750MG 150 ML IV SCH (09:57)
[2018-11-19] MEDS: ESOMEPRAZOLE 40 MG/5ml VIAL INJ IV SCH ×2 (09:58→22:13)
[2018-11-19] MEDS: SODIUM CHLOR 0.9% PF (SALINE LOCK) 10ML VIAL/SYR IV SCH ×2 (10:00→22:13)
--- NOTE | 2018-11-19 11:15 | NUR ---
pt has orders for cpap trial today. pt's sedation weaned off (precedex continued, fentanyl gtt continued), with pt able to follow simple commands. pt able to communicate understanding when prompted by rn's (verbalizing he understands the procedure behind cpap trial). pt placed on cpap mode at this time. pt presents with mild anxiety (heart rate ranges 110-120's, sbp >160s, respiratory rate ranging in the 20's) although pt is trying to stay clam. will monitor pt as cpap trial continues. vss.
--- NOTE | 2018-11-19 11:26 | NUR ---
Respiratory note: PATIENT PLACED ON SBT MODE FOR CPAP TRIAL PER DR. PAUL'S ORDER. PATIENT ON PRECEDEX AND IS REMAINING CALM, AND TOLERATING SBT WELL. GALILEA TAYLOR AT BEDSIDE AND AWARE OF VENT MODE CHANGE. WILL CONTINUE TO MONITOR PATIENT WHILE ON SBT. HR: 123 RR: 23 VT: 525 SPO2: 94% BP: 189/118
--- NOTE | 2018-11-19 11:30 | NUR ---
at this time pt is not tolerating cpap mode. pt presents with severe agitation (heart rate in the 140's as sinus tachycardia, sbp 190's, respiratory rate 40/s) despite precedex and frequent education on remaining calm and taking slow deep breaths. rt at bedside and placed pt back onto the same vent settings. once pt was placed on ac mode and sedation, heart rate immediately corrected itself (now ranging 80-90's sinus rhythm), along with sbp (ranging 150's for now), and rr (rate ranges 16-20). will continue to monitor pt, vss at this time. will update md land on pt's failed cpap trial. total time while pt was on cpap was approximately 15 minutes.
--- NOTE | 2018-11-19 11:35 | NUR ---
Respiratory note: PATIENT FAILED CPAP AND WAS PLACED BACK ON PREVIOUS AC MODE AND SETTINGS. HR INCREASED TO HIGH 140'S, PATIENT WAS SHOWING SIGNS OF DISTRESS AND AND INCREASE WOB. RN CLAUDIA AT BEDSIDE AND AWARE OF FAILURE. WILL CONTINUE TO MONITOR PATIENT FOR CPAP READINESS.
--- NOTE | 2018-11-19 12:08 | NUR ---
Nutrition Follow-up Notes Wt.: 68.4 kg today Pt's intubated, no immediate family member at bedside during rounds this morning. Pt's currently sedated with Propofol @ 20.49 ml/hr providing 541 kcal from Fat, currently NPO with EN support temporarily held for possible CPAP trial today, per nursing. Pt's previous order for on Jevity 1.2 Miguel @ 60 ml/hr providing 1728 kcal, 80 gms pro and 1162 ml free water. Est. Needs based on CBWt (67 kg): 2799-6713 kcal (25-20 kcal/kgBW), 67-80 gms pro (1.0-1.2 gms/kgBW). Will continue to monitor pertinent labs and reassess nutrient need prn Labs: Gluc 184 H, Na 147 H, CO2 36 H, BUN 45 H, AST 47 H, ALT 179, Tpro 5.9 L, Alb 2.8 L Skin: Junior scale 12, mod risk, pt's skin intact per portfolio lead. GI: Pt's no bowel activity since 11/11/18 per portfolio lead. PES: Increased nutrient needs r/t current/chronic medical condition aeb intubated, sedated, mod hypoalbuminemia, NPO with EN support Altered nutrition related lab values r/t current/chronic medical condition aeb elev BUN, hyperglycemia, hypocalcemia, mod hypoalb Obesity t/t hx food intake more than body requirement aeb 204% IBW. BMI 41/7 kg/m2 and increased body adiposity Will continue to monitor NPO status, skin status, pertinent labs and weight trend. F/u in 2 to 3 days. Rec.: 1.) Advance gradually to oral diet when medically appropriate. 2.) If still NPO, consider to resume EN support of Jevity 1.2 Miguel @ 60 ml/hr goal rate as tolerated if medically appropriate. 3 ) If Albumin level continues trending down, consider Prostat 1 pkt BID. 4.) Refer pt to RD for further nutrition education and weight monitoring upon discharge. 5.) Continue current plan of care.
[2018-11-19] MEDS ORDERED: hydrALAZINE HCL 20 MG/ML VL IV PRN (12:30)
[2018-11-19] MEDS: DILTIAZEM 125mg/125ml BAG KIT 125 ML IV SCH (12:30)
[2018-11-19] MEDS: MIDAZOLAM DRIP 50 mg/50mL 50 ML IV SCH (15:08)
--- NOTE | 2018-11-19 19:15 | NUR ---
Opening notes Assumed care, on vent, AC mode with FiO2 40%, sedation with propofol and fentanyl, OGT infusing jevity @ 15 ml/hr, no residual noted, mcguire catheter draining to a clear urine. Bed in lowest position with side rails up, bed alarm on. Will continue care.
[2018-11-19] MEDS ORDERED: Nutren Pulmonary 1 Liter GT SCH (19:30)
--- NOTE | 2018-11-19 19:38 | NUR ---
Dr. Mcduffie at bedside, updated on pt's status and discussed POC for the pt.
--- NOTE | 2018-11-19 20:17 | NUR ---
Blood draw from the PICC line done and sent specimen to lab.
--- NOTE | 2018-11-19 20:45 | NUR ---
Leaking of IV in the right forearm noted, discontinued and pressure dressing applied.
[2018-11-19] MEDS: methylPREDNISolone SOD SUCC 40 MG/ML VL IV SCH (22:13)
[2018-11-19] MEDS: PROPOFOL 100 ML IV SCH (23:17)
[2018-11-19] MEDS: FREE WATER GT SCH (23:47)
[2018-11-20] VITALS (100 sets, daily range): BP systolic 89–177; BP diastolic 45–118
--- NOTE | 2018-11-20 03:53 | NUR ---
Morning care and oral hygiene done.
[2018-11-20] MEDS: ACCU-CHEK COMFORT CURVE STRIP VI SCH ×3 (03:56→12:00)
[2018-11-20] MEDS: InsuLIN REG 1unit/0.01ml Soln (100units/ml) SC SCH ×3 (03:57→12:00)
[2018-11-20 04:07] LABS: Basophils # (auto) 0 uL; Basophils % (auto) 0.2 % (0.0-2.0); Eosinophils # (auto) 0 uL; Hematocrit 43.1 % (41.0-53.0); Hemoglobin 14.4 g/dL (13.5-17.5); Lymphocytes # (auto) 0.2 uL; Lymphocytes % (auto) 1.2 % (10.0-50.0); Mean Corpuscular Hemoglobin 31.1 pg (28.0-32.0); Mean Corpuscular Hgb Conc. 33.3 g/dL (32.0-36.0); Mean Corpuscular Volume 93.4 fL (80.0-100.0); Monocytes # (auto) 0.7 uL; Monocytes % (auto) 3.4 % (0.0-12.0); Neutrophils # (auto) 18.5 uL; Neutrophils % (auto) 95.2 % (37.0-80.0); Nucleated Red Blood Cells % 0.1 %; Platelet Count (auto) 158 10^3/uL (140-450); Red Blood Cells 4.61 10^6/uL (4.5-5.90); Red Cell Distribution Width 13.2 % (11.8-14.3); White Blood Cell 19.5 10^3/uL (4.4-10.8)
[2018-11-20] MEDS: PROPOFOL 100 ML IV SCH ×4 (04:22→18:07)
[2018-11-20 04:28] LABS: Albumin 2.8 g/dL (3.4-5.0); Calcium 8.9 mg/dL (8.5-10.1); Potassium 4.8 mmol/L (3.5-5.1)
[2018-11-20 04:30] LABS: BUN/Creatinine Ratio 61.5; Bilirubin, Total 0.9 mg/dL (0.2-1.0); Total Protein 5.8 g/dL (6.4-8.2)
[2018-11-20] MEDS: D5W/SOD CHL 0.45% 1,000 ML IV SCH (05:30)
[2018-11-20] MEDS: IPRATROPIUM BROM 0.5 MG/2.5ML INH SOL NEB SCH ×5 (05:44→22:35)
[2018-11-20] MEDS: ALBUTEROL SULF 2.5 MG/0.5ML(0.5%) NEB SOLN NEB SCH ×5 (05:44→22:35)
[2018-11-20] MEDS: FREE WATER GT SCH ×3 (06:28→18:06)
--- NOTE | 2018-11-20 07:00 | NUR ---
REPORT RECEIVED FROM GALILEA SALGADO.
--- NOTE | 2018-11-20 08:35 | NUR ---
[facility]KE -COMPUTER TEACHER FOR DR. WHITE AT BEDSIDE- FUTURE CARDIOVASCULAR WORKUP PLANNED. HOWEVER,. PATIENT PENDING TRANSFER TO [facility].
--- NOTE | 2018-11-20 09:30 | NUR ---
Patient placed on restraints for CPAP-trial only: Restraints off at 12:00. aware and at bedside.
[2018-11-20] MEDS: BUDESONIDE (INHALATION) 0.5 MG/2 ML NEB NEB SCH ×2 (10:00→18:35)
[2018-11-20] MEDS: LORazepam 0.5 MG TAB PO PRN (10:00)
[2018-11-20] MEDS: methylPREDNISolone SOD SUCC 40 MG/ML VL IV SCH ×2 (10:21→22:24)
[2018-11-20] MEDS: ESOMEPRAZOLE 40 MG/5ml VIAL INJ IV SCH ×2 (10:21→22:24)
[2018-11-20] MEDS: SODIUM CHLOR 0.9% PF (SALINE LOCK) 10ML VIAL/SYR IV SCH ×2 (10:21→22:24)
[2018-11-20] MEDS: LEVOFLOXACIN 750MG 150 ML IV SCH (10:21)
[2018-11-20] MEDS: DexMEDEtomidine 400 MCG in D5W 5% 96 ML IV SCH (10:38)
--- NOTE | 2018-11-20 10:38 | NUR ---
CPAP trial initiated: precedex started.
--- NOTE | 2018-11-20 10:38 | NUR ---
Respiratory note: CPAP TRIAL INITIATED HR 116, RR 17, SPO2 95% BP 155/87.
--- NOTE | 2018-11-20 11:15 | NUR ---
DR. GONG AT BEDSIDE- OKAY TO CPAP PATIENT. TRANSFER TO [facility] -WAITING FOR ROOM. PAPERWORK SIGNED BY DR. GRAY.
--- NOTE | 2018-11-20 11:34 | NUR ---
Respiratory note: CPAP TRIAL TERMINATED PT'S HR WAS 141-150, INCREASED WOB, GALILEA CARRERA AT BEDSIDE. PLACED PT BACK ON PREVIOUS SETTINGS.
--- NOTE | 2018-11-20 11:34 | NUR ---
CPAP trial failed; Patient placed back on AC mode.
[2018-11-20] MEDS: DILTIAZEM 125mg/125ml BAG KIT 125 ML IV SCH (12:30)
[2018-11-20] MEDS: fentaNYL Drip 2500mCg/250mlNS 250 ML IV SCH (12:55)
--- NOTE | 2018-11-20 14:53 | NUR ---
Patient has bilateral arm thin, purpura skin. While repositioning patient got skin tear to left hand. Pictures taken. Wound care consulted.
[2018-11-20] MEDS: MIDAZOLAM DRIP 50 mg/50mL 50 ML IV SCH (15:08)
--- NOTE | 2018-11-20 16:47 | NUR ---
faxed over transfer orders to [facility] at 1000hrs this am, NIKKO Weldon for [facility] called and stated she is working on orders [facility] ph [phone]
--- NOTE | 2018-11-20 16:50 | NUR ---
Spoke with Brent earlier this morning -Randy case management social worker faxed all the paperwork: waiting for bed- spoke with Randy as well.
[2018-11-20] MEDS ORDERED: DEXTROSE (50%) 50ML SYRG IV PRN (17:30)
[2018-11-20] MEDS ORDERED: InsuLIN REG 1unit/0.01ml Soln (100units/ml) SC SCH (18:00)
[2018-11-20] MEDS ORDERED: ACCU-CHEK COMFORT CURVE STRIP VI SCH (18:00)
--- NOTE | 2018-11-20 19:02 | NUR ---
Bedside report given to GALILEA Cain.
--- NOTE | 2018-11-20 20:25 | NUR ---
PAGED HOSPITALIST PT HAS ELEVATED HR HOSPITALIST PAGED FOR ORDERS, AWAITING CALL BACK
--- NOTE | 2018-11-20 20:30 | NUR ---
EKG PREFORMED EKG DONE AT BEDSIDE FOR ELEVATED HR.
--- NOTE | 2018-11-20 20:37 | NUR ---
MD AT BEDSIDE MD AT BEDSIDE ORDERS RECEIVED
[2018-11-20] MEDS ORDERED: DIGOXIN (250MCG/ML) 2 ML AMPULE ONE (20:59)
[2018-11-20] MEDS ORDERED: DIGOXIN (250MCG/ML) 2 ML AMPULE IV ONE ×2 (21:00→21:15)
--- NOTE | 2018-11-20 21:00 | NUR ---
HOSPITALIST PAGED PT HR STILL ELEVATED AFTER MEDICATION GIVEN PER MD ORDER, HOSPITALIST PAGED AWAITING CALL BACK
--- NOTE | 2018-11-20 21:15 | NUR ---
HOSPITALIST CALLED BACK INFORMED MD OF PT SITUATION REGARDING ELEVATED HR, ORDERS RECEIVED
[2018-11-20] MEDS ORDERED: AMIODARONE HCL 900 MG in DEXTROSE 500 ML IV SCH (21:57)
[2018-11-20] MEDS ORDERED: AMIODARONE HCL 150 MG in D5W 5% 100 ML IV ONE (22:00)
--- NOTE | 2018-11-20 22:48 | NUR ---
ALBUTEROL HELD DUE TO PT'S HR OF 153. Addendum: 11/20/18 at 2249 by RT TEREZA RT Amended: Links added.
[2018-11-21] MEDS ORDERED: AMIODARONE HCL 900 MG in DEXTROSE 500 ML IV SCH (03:57)
== END 2018-11-21 00:07 | disposition short-term general hospital (02) | DRG 207 ==
LOC: ER 11:27 → EDBD 11:27 → TELE 18:55 → TELE-WESTW 20:50 → ICU WEST 11-12 14:05
PROVIDERS: ADMIT Nurse Practitioner Acute Care; ATTEND Internal Medicine
PROC: 5A09457 Assistance with Respiratory Ventilation, 24-96 Consecutive Hours, Continuous Positive Airway Pressure (ICD-10-PCS; 2018-11-11)
PROC: 5A1955Z Respiratory Ventilation, Greater than 96 Consecutive Hours (ICD-10-PCS; 2018-11-12)
PROC: 0BH17EZ Insertion of Endotracheal Airway into Trachea, Via Natural or Artificial Opening (ICD-10-PCS; 2018-11-12)
PROC: 02HV33Z Insertion of Infusion Device into Superior Vena Cava, Percutaneous Approach (ICD-10-PCS; principal; 2018-11-15)
DX: J96.22 Acute and chronic respiratory failure with hypercapnia (principal); I47.1 Supraventricular tachycardia; J44.1 Chronic obstructive pulmonary disease with (acute) exacerbation; I11.0 Hypertensive heart disease with heart failure; I50.9 Heart failure, unspecified; I70.0 Atherosclerosis of aorta; F17.200 Nicotine dependence, unspecified, uncomplicated; F41.9 Anxiety disorder, unspecified; Z88.8 Allergy status to other drugs, medicaments and biological substances; Z88.0 Allergy status to penicillin
CPT/HCPCS: 36415; 36569; 36600; 71045; 80048; 80053; 81001; 82805; 82962; 83735; 83880; 84100; 84439; 84443; 84484; 85007; 85025; 85027; 87070; 87081; 87205; 93005; 93306; 94002; 94003; 94640; 94660; 96372; 96374; 96375; 99291; G0378; J1815; J1956; J2250; J2405; J2704; J7060